=== PATIENT | male | born 1965 | race Hispanic/Latino ===

== ENCOUNTER 2025-01-22 10:51 | Inpatient (IN) | payer BC, OTHER ==
[2025-01-22 12:04] LABS: #Basophils 0.03 10x3/uL (0.0-0.2); #Eosinophils 0.07 10x3/uL (0.0-0.5); #Monocytes 0.79 10x3/uL (0.0-1.1); #Neutrophils 7.65 10x3/uL (1.5-8.4); %Basophils 0.3 % (0.0-2.0); %Eosinophils 0.8 % (0.0-6.0); %Lymphocytes 3.6 % (18.0-47.0); %Monocytes 8.9 % (0.0-10.0); %Neutrophils 86.0 % (40.0-75.0); Hematocrit 51.0 % (38.8-50.0); Hemoglobin 17.0 g/dL (13.5-17.5); Mean Corpuscular Hemoglobin 28.4 pg (27.0-33.0); Mean Corpuscular Volume 85.1 fL (81.2-95.1); Platelet Count 210 10x3/uL (150-450); Red Blood Cell (RBC) Count 5.99 10x6/uL (4.32-5.72); White Blood Cell (WBC) Count 8.90 10x3/uL (3.5-10.5)
[2025-01-22 12:25] LABS: ALT (SGPT) 21 U/L (Less than 45); AST (SGOT) 25 U/L (11-34); Albumin 3.2 g/dL (3.1-4.5); Alkaline Phosphatase 61 U/L (40-110); Anion Gap 13 mmol/L (10-20); BUN (Urea Nitrogen) 21 mg/dL (8.4-25.7); Bilirubin, Total 1.1 mg/dL (0.3-1.2); Calc. Creatinine Clearance 0 mL/min (70-130); Calcium 8.6 mg/dL (7.8-10.44); Carbon Dioxide 27 mmol/L (22-29); Chloride 103 mmol/L (98-107); Globulin 3.6 g/dL (2.4-3.5); Glucose 131 mg/dL (70-105); Magnesium 2.2 mg/dL (1.6-2.6); Potassium 4.1 mmol/L (3.5-5.1); Sodium 139 mmol/L (136-145)
[2025-01-22 12:31] LABS: Troponin I Less than 0.010 ng/mL (< 0.028)
[2025-01-22] MEDS ORDERED: Albuterol 2.5 MG (3 mL) NEB ONE (15:03)
[2025-01-22] MEDS ORDERED: Acetaminophen 325 MG TAB PO PRN (15:40)
[2025-01-22] MEDS ORDERED: Ondansetron PF 4 MG/2 ML Vial IVP PRN (15:40)
[2025-01-22] MEDS ORDERED: Electrolyte Replacement Protocol 1 EACH FS SCH (15:45)
[2025-01-22] MEDS ORDERED: Oseltamivir 75 MG CAP PO SCH (15:45)
[2025-01-22] MEDS ORDERED: Oseltamivir 75 MG CAP ONE (16:25)
[2025-01-22 17:52] VITALS: BMI 58.8
[2025-01-22] MEDS: Losartan 50 MG TAB PO SCH (18:45)
[2025-01-22] MEDS ORDERED: Potassium Chloride 20 MEQ in Premix 1 BAG IVPB PRN (18:45)
[2025-01-22] MEDS ORDERED: PHOS-NAK 1 PKT PACK PO PRN (18:45)
[2025-01-22] MEDS: Losartan 25 MG TAB PO SCH (18:45)
[2025-01-22] MEDS ORDERED: Magnesium Sulfate In Water 4 GM in Premix 1 BAG IVPB PRN (18:45)
[2025-01-22] MEDS: predniSONE 20 MG TAB PO SCH (20:36)
[2025-01-22] MEDS: Carvedilol 6.25 MG TAB PO SCH (20:37)
[2025-01-22] MEDS: Famotidine 20 MG TAB PO SCH (20:37)
[2025-01-23 05:04] LABS: Anion Gap 13 mmol/L (10-20); BUN (Urea Nitrogen) 24 mg/dL (8.4-25.7); Calc. Creatinine Clearance 209 mL/min (70-130); Calcium 8.7 mg/dL (7.8-10.44); Carbon Dioxide 25 mmol/L (22-29); Chloride 103 mmol/L (98-107); Glucose 124 mg/dL (70-105); Magnesium 2.5 mg/dL (1.6-2.6); Potassium 4.2 mmol/L (3.5-5.1); Sodium 137 mmol/L (136-145)
[2025-01-23] MEDS ORDERED: Magnesium 2 GM/50 ML(in water) 2 GM in Premix 1 BAG IVPB PRN (08:14)
[2025-01-23] MEDS: Oseltamivir 75 MG CAP PO SCH (08:29)
[2025-01-23] MEDS: predniSONE 20 MG TAB PO SCH (08:29)
[2025-01-23] MEDS: Enoxaparin 40 MG (0.4 mL) SYRINGE SC SCH (08:29)
[2025-01-23] MEDS: Carvedilol 6.25 MG TAB PO SCH (08:30)
[2025-01-23] MEDS: Guaifenesin DM 100-10/5 ML UDCUP PO PRN (20:24)
[2025-01-24 05:18] LABS: Anion Gap 13 mmol/L (10-20); BUN (Urea Nitrogen) 25 mg/dL (8.4-25.7); Calc. Creatinine Clearance 218 mL/min (70-130); Calcium 8.6 mg/dL (7.8-10.44); Carbon Dioxide 26 mmol/L (22-29); Chloride 103 mmol/L (98-107); Glucose 102 mg/dL (70-105); Potassium 3.5 mmol/L (3.5-5.1); Sodium 138 mmol/L (136-145)
[2025-01-24] MEDS: Losartan 50 MG TAB PO SCH (08:32)
[2025-01-24] MEDS: Chlorthalidone 25 MG TAB PO SCH (20:22)
[2025-01-24] MEDS: Carvedilol 6.25 MG TAB PO SCH (21:29)
[2025-01-25 04:20] LABS: Anion Gap 15 mmol/L (10-20); BUN (Urea Nitrogen) 22 mg/dL (8.4-25.7); Calc. Creatinine Clearance 231 mL/min (70-130); Calcium 8.8 mg/dL (7.8-10.44); Carbon Dioxide 25 mmol/L (22-29); Chloride 103 mmol/L (98-107); Glucose 98 mg/dL (70-105); Potassium 3.7 mmol/L (3.5-5.1); Sodium 139 mmol/L (136-145)
[2025-01-25] MEDS: Carvedilol 12.5 MG TAB PO SCH (08:22)
[2025-01-25 13:50] VITALS: BP 161/89; TEMP 98.4
[2025-01-25] MEDS ORDERED: Enoxaparin 60 MG (0.6 mL) SYRINGE SC SCH (21:00)
[2025-01-25] MEDS ORDERED: Chlorthalidone 25 MG TAB PO SCH (21:00)
== END 2025-01-25 14:30 | disposition home or self-care (01) | DRG 193 ==
LOC: CSHERS 10:51 → CSHTELE 15:43 → OBSVTOIN 01-23 09:30
PROVIDERS: ADMIT Family Medicine; ATTEND Physician Assistant
DX: J10.1 Influenza due to other identified influenza virus with other respiratory manifestations (principal); J96.01 Acute respiratory failure with hypoxia; I45.2 Bifascicular block; Z68.43 Body mass index [BMI] 50.0-59.9, adult; I10 Essential (primary) hypertension; E66.01 Morbid (severe) obesity due to excess calories; J20.9 Acute bronchitis, unspecified; R00.0 Tachycardia, unspecified; I16.0 Hypertensive urgency
CPT/HCPCS: 36415; 71045; 80048; 80053; 83735; 83880; 84100; 84484; 85025; 87428; 93005; 94640; 94760; 96372; G0378; J1650; J7512; J7611